=== PATIENT | male | born 1995 | race Native Hawaiian/Other Pacific Islander ===

== ENCOUNTER 2019-04-19 11:13 | Emergency (ER) | payer OTHER ==
[~2019-04-19] VITALS: Ht 190.5 cm; Wt 54.4 kg
[2019-04-19 14:37] VITALS: BP 115/73; TEMP 97.9
== END 2019-04-19 14:39 | disposition home or self-care (01) ==
LOC: ED 11:13
PROC: 0HQFXZZ Repair Right Hand Skin, External Approach (ICD-10-PCS; principal; 2019-04-19)
DX: S61.210A Laceration without foreign body of right index finger without damage to nail, initial encounter (principal); S61.214A Laceration without foreign body of right ring finger without damage to nail, initial encounter; W27.8XXA Contact with other nonpowered hand tool, initial encounter; Y92.89 Other specified places as the place of occurrence of the external cause
CPT/HCPCS: 99283

== ENCOUNTER 2019-04-27 13:14 | Emergency (ER) | payer OTHER ==
[~2019-04-27] VITALS: Ht 190.5 cm; Wt 54.4 kg
[2019-04-27 13:38] VITALS: BP 126/77; TEMP 98.2
== END 2019-04-27 14:25 | disposition home or self-care (01) ==
LOC: ED 13:14
DX: Z48.02 Encounter for removal of sutures (principal)
CPT/HCPCS: 90471; 90715; 99282